=== PATIENT | male | born 1985 | race Caucasian/White ===

== ENCOUNTER 2023-04-11 06:28 | Day surgery (SDC) | payer BC ==
[2023-04-10 09:29] VITALS: BMI 36.2
[2023-04-11] MEDS ORDERED: Dexmedetomidine 200 MCG/2 ML VIAL ONE ×2 (06:54→07:28)
[2023-04-11] MEDS ORDERED: Oxymetazoline HCl 0.05% (30 ML BOT) ONE ×2 (06:59→07:50)
[2023-04-11] MEDS ORDERED: Acetaminophen 500 MG TAB ONE (07:22)
[2023-04-11] MEDS ORDERED: PROPOFOL 200 MG/20 ML VIAL ONE (07:40)
[2023-04-11] MEDS ORDERED: NEOSTIGMINE 3 MG/3 ML SYR 3 MG/3 ML SYRINGE ONE (07:40)
[2023-04-11] MEDS ORDERED: Dexamethasone 20 MG/5 ML VIAL ONE (07:40)
[2023-04-11] MEDS ORDERED: Rocuronium Bromide 10 MG/ML (10ML VIAL) ONE (07:40)
[2023-04-11] MEDS ORDERED: Ondansetron PF 4 MG/2 ML Vial ONE ×2 (07:40→07:51)
[2023-04-11] MEDS ORDERED: Lidocaine 1% PF 5 ML VIAL ONE (07:40)
[2023-04-11] MEDS ORDERED: Glycopyrrolate 0.2 MG/ML 5 ML SYRINGE ONE (07:40)
[2023-04-11] MEDS ORDERED: Lidocaine 1% (PF) 30 ML VIAL ONE (07:50)
[2023-04-11] MEDS ORDERED: EPINEPHrine 1 MG/ML AMP ONE (07:50)
[2023-04-11] MEDS ORDERED: Bacitracin Zinc Ointment 30 gm TUBE ONE (07:50)
[2023-04-11] MEDS ORDERED: fentaNYL PF 100 MCG/2 ML SYRINGE ONE ×2 (07:51→09:52)
[2023-04-11] MEDS ORDERED: SUGAMMADEX SODIUM 200 MG/2 ML VIAL ONE (07:51)
[2023-04-11] MEDS ORDERED: Lidocaine 1% MPF 2 ML VIAL ONE (10:50)
[2023-04-11] MEDS ORDERED: Hydrocodone-Acetamin 15 ML UDCUP ONE (11:07)
== END 2023-04-11 11:30 | disposition home or self-care (01) ==
LOC: SDC 06:28
PROVIDERS: ATTEND Otolaryngology Plastic Surgery within the Head & Neck
PROC: 09BR8ZZ Excision of Left Maxillary Sinus, Via Natural or Artificial Opening Endoscopic (ICD-10-PCS; principal; 2023-04-11)
PROC: 09BV8ZZ Excision of Left Ethmoid Sinus, Via Natural or Artificial Opening Endoscopic (ICD-10-PCS; principal; 2023-04-11)
PROC: 09BL8ZZ Excision of Nasal Turbinate, Via Natural or Artificial Opening Endoscopic (ICD-10-PCS; principal; 2023-04-11)
PROC: 09BQ8ZZ Excision of Right Maxillary Sinus, Via Natural or Artificial Opening Endoscopic (ICD-10-PCS; principal; 2023-04-11)
PROC: 09BM8ZZ Excision of Nasal Septum, Via Natural or Artificial Opening Endoscopic (ICD-10-PCS; principal; 2023-04-11)
PROC: 09BU8ZZ Excision of Right Ethmoid Sinus, Via Natural or Artificial Opening Endoscopic (ICD-10-PCS; principal; 2023-04-11)
PROC: 09BT8ZZ Excision of Left Frontal Sinus, Via Natural or Artificial Opening Endoscopic (ICD-10-PCS; principal; 2023-04-11)
PROC: 09BS8ZZ Excision of Right Frontal Sinus, Via Natural or Artificial Opening Endoscopic (ICD-10-PCS; principal; 2023-04-11)
DX: J34.2 Deviated nasal septum (principal); J34.3 Hypertrophy of nasal turbinates; J32.8 Other chronic sinusitis; J34.89 Other specified disorders of nose and nasal sinuses; I10 Essential (primary) hypertension; E78.00 Pure hypercholesterolemia, unspecified; J45.909 Unspecified asthma, uncomplicated; Z87.891 Personal history of nicotine dependence; Z79.899 Other long term (current) drug therapy; Z91.040 Latex allergy status
CPT/HCPCS: 93005; 93010; J0171; J1100; J2001; J2405; J2704

== ENCOUNTER 2023-06-08 12:59 | Outpatient (CLI) | payer BC ==
[2023-06-08 15:19] LABS: Hematocrit 45.8 % (38.8-50.0); Hemoglobin 16.1 g/dL (13.5-17.5); Mean Corpuscular HGB CONC 35.2 g/dL (32.0-36.0); Mean Corpuscular Hemoglobin 33.1 pg (27.0-33.0); Mean Platelet Volume 10.3 fl (7.4-10.4); Platelet Count 304 10x3/uL (150-450); Red Blood Cell (RBC) Count 4.87 10x6/uL (4.32-5.72); White Blood Cell (WBC) Count 8.6 10x3/uL (3.5-10.5)
[2023-06-08 15:48] LABS: Anion Gap 18 mmol/L (10-20); BUN (Urea Nitrogen) 16 mg/dL (8.9-20.6); Calc. Creatinine Clearance 0 mL/min (70-130); Calcium 9.7 mg/dL (7.8-10.44); Carbon Dioxide 22 mmol/L (22-29); Chloride 106 mmol/L (98-107); Estimated GFR 106; Glucose 95 mg/dL (70-105); Potassium 4.1 mmol/L (3.5-5.1); Sodium 142 mmol/L (136-145)
== END 2023-06-08 13:00 | disposition home or self-care (01) ==
LOC: LABBT 12:59
PROVIDERS: ATTEND Specialist
DX: Z01.818 Encounter for other preprocedural examination (principal); R22.1 Localized swelling, mass and lump, neck; R22.2 Localized swelling, mass and lump, trunk
CPT/HCPCS: 80048; 85027; 93005; 93010

== ENCOUNTER 2023-06-15 09:40 | Day surgery (SDC) | payer BC ==
[2023-06-08 13:57] VITALS: BMI 36.5
[2023-06-15] MEDS ORDERED: Acetaminophen 500 MG TAB ONE (09:57)
[2023-06-15] MEDS ORDERED: CEFAZOLIN 2 GM VIAL ONE (09:57)
[2023-06-15] MEDS ORDERED: Ketorolac Tromethamine 30 MG (1 mL) VIAL ONE (09:57)
[2023-06-15] MEDS ORDERED: Sodium Chloride 0.9% 100 ML ONE (09:57)
[2023-06-15] MEDS ORDERED: PROPOFOL 20 ML ONE (11:47)
[2023-06-15] MEDS ORDERED: fentaNYL PF 100 MCG/2 ML SYRINGE ONE (11:47)
[2023-06-15] MEDS ORDERED: Midazolam HCl 2 mg/2 ml Vial ONE ×2 (11:48→12:39)
[2023-06-15] MEDS ORDERED: Rocuronium Bromide 10 MG/ML (10ML VIAL) ONE ×2 (11:49→12:52)
[2023-06-15] MEDS ORDERED: Lidocaine 1% PF 5 ML VIAL ONE ×2 (11:49→12:52)
[2023-06-15] MEDS ORDERED: Ondansetron PF 4 MG/2 ML Vial ONE ×2 (11:49→12:52)
[2023-06-15] MEDS ORDERED: Bupivacaine 0.25% HCL 30 ML VIAL ONE (12:06)
[2023-06-15] MEDS ORDERED: EPINEPHrine 1 MG/ML VIAL ONE (12:06)
[2023-06-15] MEDS ORDERED: Sodium Bicarbonate 2.5 MEQ/5 ML SDV ONE (12:07)
[2023-06-15] MEDS ORDERED: PROPOFOL 200 MG/20 ML VIAL ONE (12:52)
[2023-06-15] MEDS ORDERED: ePHEDrine Sulfate 50 MG/10 ML VIAL ONE ×2 (12:52→13:32)
[2023-06-15] MEDS ORDERED: fentaNYL 50 mcg/mL 1 mL Vial ONE (13:39)
[2023-06-15] MEDS ORDERED: SUGAMMADEX SODIUM 200 MG/2 ML VIAL ONE (13:54)
[2023-06-15] MEDS ORDERED: Bacitracin Zinc Ointment 30 gm TUBE ONE (13:55)
== END 2023-06-15 16:01 | disposition home or self-care (01) ==
LOC: SDC 09:40
PROVIDERS: ATTEND Specialist
PROC: 0JB00ZZ Excision of Scalp Subcutaneous Tissue and Fascia, Open Approach (ICD-10-PCS; principal; 2023-06-15)
PROC: 0JB73ZZ Excision of Back Subcutaneous Tissue and Fascia, Percutaneous Approach (ICD-10-PCS; 2023-06-15)
DX: R22.1 Localized swelling, mass and lump, neck (principal); R22.0 Localized swelling, mass and lump, head; J45.909 Unspecified asthma, uncomplicated; F10.90 Alcohol use, unspecified, uncomplicated; F15.90 Other stimulant use, unspecified, uncomplicated; Z98.52 Vasectomy status; Z87.891 Personal history of nicotine dependence; Z79.899 Other long term (current) drug therapy
CPT/HCPCS: 88304; J0171; J0665; J1885; J2250; J2405; J2704; J3010; J3490